=== PATIENT | female | born 1960 | race Hispanic/Latino ===

== ENCOUNTER → 2025-01-18 | Outpatient (CLI) | payer BC ==
--- NOTE | 2025-01-18 12:50 | HMCIMG ---
STUDY: ULTRASOUND OF THE THYROID AND NECK CLINICAL INFORMATION: Nontoxic single thyroid nodule. TECHNIQUE: High-resolution real-time grayscale ultrasound of the thyroid gland was performed, with focused assessment of both lobes and the isthmus. COMPARISON: None provided. FINDINGS: ISTHMUS: Isthmic thickness measures approximately 2 mm and demonstrates homogeneous echotexture without focal nodule. RIGHT LOBE: Right lobe measures approximately 4.3 x 1.4 x 1.6 cm and is homogeneous in background echotexture. A simple cyst in the mid pole measures approximately 2 x 2 x 2 mm. A second simple cyst in the lower pole measures approximately 4 x 2 x 3 mm. In the lower pole, there is a well-circumscribed hypoechoic solid nodule measuring approximately 10 x 7 x 9 mm, with smooth margins and no internal calcifications. Based on ACR TI-RADS features (solid composition, hypoechoic echogenicity, smooth margins, no echogenic foci), this nodule scores 4 points, corresponding to TI-RADS 4 (moderately suspicious). LEFT LOBE: Left lobe measures approximately 3.4 x 0.9 x 1.2 cm and is homogeneous in echotexture. A predominantly cystic lesion in the upper to mid pole measures approximately 9 x 2 x 7 mm with benign simple cystic appearance and no solid component or calcifications, compatible with a TI-RADS 1 (benign) cyst. No additional discrete solid nodule is described. IMPRESSION: * Right lower pole solid hypoechoic thyroid nodule measuring 10 x 7 x 9 mm with smooth margins and no calcifications. ACR TI-RADS score 4 (moderately suspicious). At this size, it is below the usual threshold for fine-needle aspiration but meets criteria for sonographic surveillance; recommend follow-up thyroid ultrasound in approximately 1 year (or per institutional/ACR TI-RADS protocol) to assess for stability. * Additional small simple cysts in both lobes, including a 9 x 2 x 7 mm left upper???mid pole cyst, TI-RADS 1 (benign), with no specific imaging follow-up required. * Overall normal thyroid size and background echotexture without diffuse thyroid abnormality. Clinical management should integrate sonographic TI-RADS risk, laboratory thyroid function, and any additional clinical risk factors for thyroid malignancy. /[place]
== END | disposition home or self-care (01) ==
LOC: RAH 08:27
PROVIDERS: ATTEND Family Medicine
DX: E04.2 Nontoxic multinodular goiter (principal)
CPT/HCPCS: 76536